=== PATIENT | female | born 1990 | race Two or more races ===

== ENCOUNTER 2018-04-24 09:32 | Emergency (ER) | payer BC, OTHER ==
[~2018-04-24] VITALS: Ht 149.9 cm; Wt 107.5 kg
[2018-04-24 09:32] VITALS: BP 124/67
== END 2018-04-24 11:15 | disposition home or self-care (01) ==
LOC: ER 09:35
DX: S93.401A Sprain of unspecified ligament of right ankle, initial encounter (principal); X58.XXXA Exposure to other specified factors, initial encounter; Y93.89 Activity, other specified; Y92.89 Other specified places as the place of occurrence of the external cause; Y99.8 Other external cause status
CPT/HCPCS: 73610; 73620; 99284; A4606; Z7610